=== PATIENT | male | born 1975 | race African-American/Black ===

== ENCOUNTER 2017-11-10 18:02 | Emergency (ER) | payer OTHER ==
[2017-11-10 18:16] VITALS: BMI 19.6
[2017-11-10] MEDS ORDERED: SODIUM CHLORIDE 1,000 ML IV STA (19:27)
--- NOTE | 2017-11-10 19:29 | PDOC ---
History of Present Illness - General Chief Complaint: Sore Throat Stated Complaint: VOMITING BLOOD/sorethroat/earache Time Seen by Provider: 11/10/17 18:41 - History of Present Illness Initial Comments: 11/10/17 19:23 42 yo M with h/o Etoh dependence, recent Etoh detox BIBA from [address] [place] [address] ( Inpatient) with report of blood streaked sputum. Pt. reports 3 years of chronic blood in sputum, with acute episode this AM (10-1200), following retching. Reports increased sputum production. Reports chronic left ear pain following ENT visit with instrumentation/water irrigated into L ear canal. Denies F/C, hemoptysis, hematemesis, N/V, ADAMSON, hearing loss, CP, SOB, abdominal pain, diarrhea, constipation, urinary complaints, weakness, lightheadedness, sensory changes, vertigo. PMHx: as noted above. Denies h/o PE/DVT. ROS: as noted above. Denies recent travel/immobilization, surgery, or trauma. SHx: 1-2 cigarettes per day for 15 years. 1 Pint of Vodka per day for 12 + years. Last intake this AM. Denies h/o IVDA. Past History - Past Medical History Allergies/Adverse Reactions: Allergies Allergy/AdvReac Type Severity Reaction Status Date / Time No Known Allergies Allergy Verified 11/10/17 18:16 COPD: No Other medical history: etoh abuse - Suicide/Smoking/Psychosocial Hx Smoking History: Never smoked Have you smoked in the past 12 months: No Information on smoking cessation initiated: No Hx Alcohol Use: No Drug/Substance Use Hx: No Substance Use Type: Alcohol Review of Systems - Review of Systems Comments:: 11/10/17 19:24 GENERAL/CONSTITUTIONAL: No fever or chills. No weakness. HEAD, EYES, EARS, NOSE AND THROAT: + left ear pain. No change in vision. No ear discharge. CARDIOVASCULAR: No chest pain or shortness of breath RESPIRATORY: No cough, wheezing, or hemoptysis. GASTROINTESTINAL: No nausea, vomiting, diarrhea or constipation. GENITOURINARY: No dysuria, frequency, or change in urination. MUSCULOSKELETAL: No joint or muscle swelling or pain. No neck or back pain. SKIN: No rash NEUROLOGIC: No headache, vertigo, loss of consciousness, or change in strength/ sensation. ENDOCRINE: No increased thirst. No abnormal weight change HEMATOLOGIC/LYMPHATIC: No anemia, easy bleeding, or history of blood clots. ALLERGIC/IMMUNOLOGIC: No hives or skin allergy. *Physical Exam - Vital Signs Last Vital Signs Temp Pulse Resp BP Pulse Ox 98.4 F 101 H 16 151/97 100 11/10/17 18:14 11/10/17 18:14 11/10/17 18:14 11/10/17 18:14 11/10/17 18:14 - Physical Exam Comments: 11/10/17 19:24 GENERAL: Awake, alert, and fully oriented, in no acute distress HEAD: No signs of trauma, normocephalic, atraumatic EYES: PERRLA, EOMI, sclera anicteric, conjunctiva clear ENT: L auricle with blood at superior external tympanic membrane, hearing grossly normal, nares patent, oropharynx clear without exudates. Erythematous external tymapnic membrane. Moist mucosa. + Whitish, yellow, removable pseudomembrane on tongue. NECK: Normal ROM, supple, no lymphadenopathy, JVD, or masses LUNGS: Exp rhonci. Absent rales. HEART: Regular rate and rhythm, normal S1 and S2, no murmurs, rubs or gallops, peripheral pulses normal and equal bilaterally. ABDOMEN: Soft, nontender, NBS. No guarding, no rebound. No masses. EXTREMITIES : Normal inspection, Normal range of motion, no edema. No clubbing or cyanosis. SKIN: Warm, Dry, normal turgor, no rashes or lesions noted ED Treatment Course - LABORATORY CBC & Chemistry Diagram: 11/10/17 12:43 11/10/17 12:43 Medical Decision Making - Medical Decision Making 11/10/17 19:46 42 yo M with h/o Etoh dependence, recent Etoh detox BIBA from [address] [place] [address] with report of blood streaked sputum. AFF, VSS, A&OX3. Low suspicion of esophageal perforation ( Borhaave or Chandrika Armond). Patient HDS, with absent chest pain. Left ear with blood in canal at sup. TM. Likely postramautic. Absent evidence of TM rupture. Will consider AOM. Absent discharge/granulation from Ext ear canal. Low suspicion of EOM. ED Course: T&S, CBC, CMP UA CXR 11/10/17 20:46 Nystatin swish and swallow. 11/10/17 21:14 CBC,CMP: Unremarkable 11/10/17 21:46 Patient medically cleared and stable for d/c back to [address] [place] [address]. *DC/Admit/Observation/Transfer Diagnosis at time of Disposition: Blood in sputum - Discharge Dispostion Disposition: TRANSFER ACUTE CARE/OTHER HOSP Condition at time of disposition: Stable Decision to Admit order: No - Referrals Referrals: Piter Rob MD [Primary Care Provider] - Rufus Jara MD [Staff Physician] - - Patient Instructions Printed Discharge Instructions: DI for Ear Pain-Adult Additional Instructions: Please return to the emergency department with any new or worsening symptoms or concerns. Please follow up with your primary care physician within 72 hours. Please follow up with ENT within one week. - Post Discharge Activity - Attestations Physician Attestion: 11/10/17 19:25 I attest to the information provided in this note.
[2017-11-10] MEDS ORDERED: NYSTATIN 500,000 UNITS/5 ML SUSPENSION PO ONE (19:43)
[2017-11-10 20:08] LABS: BASO % 1.3 % (0-2.0); EOS % 0.3 % (0-4.5); HEMATOCRIT 37.2 % (35.4-49); HEMOGLOBIN 12.4 GM/dL (11.7-16.9); MCH 30.3 pg (25.7-33.7); MCHC 33.2 g/dl (32.0-35.9); MEAN PLT VOLUME 8.2 fl (7.5-11.1); MONO % 8.5 % (3.8-10.2); NEUT % 73.9 % (42.8-82.8); PLATELET COUNT 146 K/MM3 (134-434); RBC 4.09 M/mm3 (4.00-5.60); RDW 15.5 % (11.9-15.9); WHITE BLOOD COUNT 3.9 K/mm3 (4.0-10.0)
--- NOTE | 2017-11-10 20:30 | PDOC ---
Attending Attestation - Resident Resident Name: Buster Mcguire - ED Attending Attestation I have performed the following: I have examined & evaluated the patient, The case was reviewed & discussed with the resident, I agree w/resident's findings & plan, Exceptions are as noted - HPI HPI: 11/10/17 21:51 Mr Baugh is a 42 yo M h/o Alcohol dependence, currently at [facility] for Detox He was referred to the ER for evaluation of blood streaked sputum which he has had for the past 3 years He has been worked up for this by ENT in the past He also has left ear pain s/p irrigation by ENT physician No fevers or chills No recent travel no lower extremity edema No chest pain or shortness of breath Pt does smoke daily and has done so for 15 years 11/10/17 21:52 - Physicial Exam PE: 11/10/17 21:54 GENERAL: Awake, alert, and fully oriented, in no acute distress ENT: L auricle with evidence of EAC trauma, hearing nml Moist mucosa. + Whitish material on the tongue LUNGS: Exp rhonci HEART: Regular rate and rhythm, normal S1 and S2 ABDOMEN: Soft, nontender, NBS. No guarding, no rebound. EXTREMITIES : Normal inspection, Normal range of motion, no edema. SKIN: Warm, Dry, normal turgor, no rashes or lesions noted - Medical Decision Making 11/10/17 21:56 42 yo presenting to the ER for evaluation of blood tinged expectorant? This has been an issue for this patient for approximately 3 years, he has been worked up for this by ENT Pt states this is unchanged Labs sent Demonstrate no significant anemia, no thrombocytopenia, nml INR Pt will be discharged back to [place] care Can follow up with ENT Can take motrin for ear pain Return to the ER for any other concerns or complaints
[2017-11-10 20:46] LABS: INR 0.94 (0.82-1.09); PROTHROMBIN TIME (PATIENT) 10.6 SEC (9.7-13.0)
[2017-11-10 20:58] LABS: ALBUMIN 4.5 g/dl (3.4-5.0); ANION GAP 13 (8-16); BILIRUBIN,TOTAL 0.7 mg/dL (0.2-1.0); BLOOD UREA NITROGEN 11 mg/dL (7-18); CHLORIDE 99 mmol/L (98-107); CO2 27 mmol/L (21-32); CREATININE 0.7 mg/dL (0.7-1.3); GLUCOSE,RANDOM 80 mg/dL (74-106); SGOT/AST 163 U/L (15-37); SGPT/ALT 111 U/L (12-78); SODIUM 139 mmol/L (136-145); TOT PROT 8.5 g/dl (6.4-8.2)
[2017-11-10 20:59] LABS: ALK PHOS 59 U/L (45-117)
[2017-11-10] MEDS ORDERED: ONDANSETRON *ODT* 4 MG TABLET SL ONE (22:47)
[2017-11-10] MEDS ORDERED: ONDANSETRON *ODT* 4 MG TABLET ONE (23:15)
[2017-11-11 00:44] VITALS: BP 162/98; PULSE 92; TEMP 9806
== END 2017-11-11 00:43 | disposition short-term general hospital (02) ==
LOC: JER 18:02
PROC: 3E0337Z Introduction of Electrolytic and Water Balance Substance into Peripheral Vein, Percutaneous Approach (ICD-10-PCS; principal; 2017-11-10)
DX: R04.2 Hemoptysis (principal); F10.20 Alcohol dependence, uncomplicated
CPT/HCPCS: 36415; 71045-TC-FY; 80053; 85025; 85610; 86850; 86900; 86901; 99282-25; J7030; Q0162

== ENCOUNTER 2017-11-11 01:14 | Inpatient (IN) | payer OTHER ==
[2017-11-11] MEDS ORDERED: LOPERAMIDE HCL 2 MG CAPSULE PO PRN (01:29)
[2017-11-11] MEDS ORDERED: MAG HYDROX/AL HYDROX/SIMETH 30 ML UNIT-DOSE CUP PO PRN (01:29)
[2017-11-11] MEDS ORDERED: MAGNESIUM HYDROX 2400MG/30ML ORAL SUSPENSION 30 ML CUP PO PRN (01:29)
[2017-11-11] MEDS ORDERED: hydrOXYzine PAMOATE 50 MG CAPSULE (FP) PO PRN (01:29)
[2017-11-11] MEDS ORDERED: chlordiazePOXIDE HCL 25 MG CAPSULE PO PRN (01:29)
[2017-11-11] MEDS ORDERED: MENTHOL/PHENOL 1 EACH UD MM PRN (01:29)
[2017-11-11] MEDS ORDERED: chlordiazePOXIDE HCL 25 MG CAPSULE PO ONE (01:29)
[2017-11-11] MEDS ORDERED: guaiFENesin/D-METHORPHAN HB 10 ML UNIT-DOSE CUPS PO PRN (01:29)
[2017-11-11] MEDS ORDERED: ACETAMINOPHEN 325 MG TABLET (FP) PO PRN (01:29)
[2017-11-11] MEDS ORDERED: NICOTINE POLACRILEX 2 MG GUM BC PRN (01:29)
[2017-11-11] MEDS ORDERED: IBUPROFEN 400 MG TABLET (FP) PO PRN (01:29)
[2017-11-11] MEDS ORDERED: P-EPHED 60MG/TRIPROLIDI 2.5MG TABLET PO PRN (01:29)
[2017-11-11] MEDS ORDERED: MAGNESIUM CITRATE 300 ML BOTTLE PO PRN (01:29)
--- NOTE | 2017-11-11 01:36 | HP ---
CIWA Score - CIWA Score Nausea/Vomitin-Int. Nausea w/Dry Heave Muscle Tremors: 7-Severe,w/o Arm Extended Anxiety: 4-Mod. Anxious/Guarded Agitation: 4-Moderately Restless Paroxysmal Sweats: 3 Orientation: 3-Disoriented Date>2 days Tacttile Disturbances: 3-Moderate Itch/Numb/Burn Auditory Disturbances: 0-None Visual Disturbances: 0-None Headache: 0-None Present CIWA-Ar Total Score: 28 Admission ROS S - HPI Chief Complaint: C/O WITHDRAWAL SX'S. SEEKING DETOX Allergies/Adverse Reactions: Allergies Allergy/AdvReac Type Severity Reaction Status Date / Time No Known Allergies Allergy Verified 11/10/17 18:16 History of Present Illness: 42 Y.O. MALE WITH 12 HX/O OF ALCOHOLISM HERE FOR DETOX. CLIENT RETURNS FROM [facility] AFTER BEING MEDICALLY CLEARED FOR A REPORTED GI BLEED. CLIENT REPORTS THIS IS HIS FIRST TIME IN DETOX. REFERRED BY FAMILY. DENIES ANY SIGNIFICANT PERIOD OF CLEAN TIME, SEIZURES, BLACKING OOUT, SI/HI. PMHX: GI BLEED, [place] L EAR, CHRONIC LEFT EAR INFECTION PSYCH: DENIES Exam Limitations: Other ([place] LEFT EAR) - Ebola screening Have you traveled outside of the country in the last 21 days: No Have you had contact with anyone from an Ebola affected area: No Have you been sick,other than usual withdrawal symptoms: No Do you have a fever: No - Review of Systems Constitutional: Chills, Loss of Appetite, Night Sweats, Changes in sleep EENT: reports: Hearing Loss (LEFT EAR), Nose Congestion, Dental Problems ( BLEEDING GUMS) Respiratory: reports: No Symptoms reported Cardiac: reports: No Symptoms Reported GI: reports: Nausea, Poor Appetite, Poor Fluid Intake, Vomiting (DRY HEAVING) : reports: No Symptoms Reported Musculoskeletal: reports: No Symptoms Reported Integumentary: reports: No Symptoms Reported Neuro: reports: No Symptoms reported Endocrine: reports: No Symptoms Reported Hematology: reports: Other (BLEEDING GUMS) Psychiatric: reports: Anxious, Depressed Other Systems: Reviewed and Negative Patient History - Patient Medical History Hx Anemia: No Hx Asthma: No Hx Chronic Obstructive Pulmonary Disease (COPD): No Hx Cancer: No Hx Cardiac Disorders: No Hx Congestive Heart Failure: No Hx Hypertension: No Hx Hypercholesterolemia: No Hx Pacemaker: No HX Cerebrovascular Accident: No Hx Seizures: No Hx Dementia: No Hx Diabetes: No Hx Gastrointestinal Disorders: Yes (GI BLEED, GERD) Hx Liver Disease: No Hx Genitourinary Disorders: No Hx Sexually Transmitted Disorders: No Hx Renal Disease (ESRD): No Hx Thyroid Disease: No Hx Human Immunodeficiency Virus (HIV): No Hx Hepatitis C: No Hx Depression: No Hx Suicide Attempt: No Hx Bipolar Disorder: No Hx Schizophrenia: No Other Medical History: DENIES - Patient Surgical History Past Surgical History: No - PPD History Previous Implant?: Yes Documented Results: Negative w/o proof Implanted On Prior [facility] Admission?: No PPD to be Administered?: Yes - Smoking Cessation Smoking history: Former smoker Have you smoked in the past 12 months: Yes Aproximately how many cigarettes per day: 3 Cigars Per Day: 0 Hx Chewing Tobacco Use: No Initiated information on smoking cessation: Yes 'Breaking Loose' booklet given: 11/11/17 - Substance & Tx. History Hx Alcohol Use: Yes Hx Substance Use: Yes Substance Use Type: Alcohol, Marijuana Hx Substance Use Treatment: No - Substances Abused VODKA Route: Oral Frequency: Daily Amount used: 1 LITER Age of first use: 30 Date of Last Use: 11/10/17 THC Route: Oral Frequency: Daily Amount used: 1 JOINT Age of first use: 20 Date of Last Use: 11/09/17 Family Disease History - Family Disease History Family History: Denies Admission Physical Exam BHS - Physical General Appearance: Yes: Appropriately Dressed, Moderate Distress, Alcohol on Breath, Thin, Tremorous, Anxious HEENTM: Yes: EOMI, Normocephalic, Normal Voice, JORDAN, Pharynx Normal, Nasal Congestion, Other (BLEEDING GUMS) Respiratory: Yes: Chest Non-Tender, Lungs Clear, Normal Breath Sounds, No Respiratory Distress, No Accessory Muscle Use Neck: Yes: No masses,lesions,Nodules, Supple, Trachea in good position Breast: Yes: Breast Exam Deferred Cardiology: Yes: Regular Rhythm, Regular Rate, S1, S2 Abdominal: Yes: Normal Bowel Sounds, Non Tender, Flat, Soft Genitourinary: Yes: Within Normal Limits Back: Yes: Normal Inspection Musculoskeletal: Yes: full range of Motion, Gait Steady Extremities: Yes: Normal Range of Motion, Non-Tender, Tremors Neurological: Yes: Alert, Disoriented (DATE) Integumentary: Yes: Dry, Warm Lymphatic: Yes: Within Normal Limits - Diagnostic (1) Alcohol dependence with uncomplicated withdrawal Current Visit: Yes Status: Acute (2) GERD (gastroesophageal reflux disease) Current Visit: Yes Status: Suspected (3) Former smoker Current Visit: Yes Status: Suspected (4) Substance induced mood disorder Current Visit: Yes Status: Suspected (5) Blood in sputum Current Visit: Yes Status: Chronic (6) Cannabis dependence, uncomplicated Current Visit: Yes Status: Acute Cleared for Admission S - Detox or Rehab [facility] Level of Care: Medically Managed Detox Regimen/Protocol: Librium Claeared for Rehab Admission: No BHS Breath Alcohol Content Breath Alcohol Content: 0.084 Vital Signs - Vital Signs Vital Signs Refused: No Temperature: 99.2 F Temperature Source: Oral Pulse Rate: 95 Respiratory Rate: 16 Blood Pressure: 138/77 BP Location: Left Arm Blood Pressure Position: Sitting - Height Height: 6 ft 1 in - Weight Weight: 63.503 kg Weight Measurement Method: Stated by Patient Body Mass Index (BMI): 18.4 - Bowel Function Bowel Movement: No Urine Drug Screen - Test Device Lot Number: [id number] Expiration Date: 08/08/19 - Control Is Test Valid: Yes - Results Drug Screen Negative: No Urine Drug Screen Results: THC-Marijuana
[2017-11-11 01:44] VITALS: BMI 18.4
[2017-11-11] MEDS ORDERED: TRIMETHOBENZAMIDE HCL 200MG/2ML INJ IM PRN (01:45)
[2017-11-11] MEDS: chlordiazePOXIDE HCL 25 MG CAPSULE PO SCH ×4 (06:53→22:26)
--- NOTE | 2017-11-11 08:18 | CONSULT ---
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 Refer to addiction counselor's summary for further information Medical History: Significant for GERD, GI bleed, chronic left ear infection. Smokes 3 cigarettes daily Psychiatric History: Denies history of previous psychiatric treatment Physical/Sexual Abuse/Trauma History: Denies history of emotional, physical or sexual abuse as well as DV relationship Additional Comment: Reports history of one misdemeanor arrest Mental Status Exam - Mental Status Exam Alert and Oriented to: Time, Place, Person Cognitive Function: Fair Patient Appearance: Well Groomed Mood: Anxious Affect: Appropriate Patient Behavior: Cooperative Speech Pattern: Clear Voice Loudness: Normal Thought Process: Intact, Goal Oriented Thought Disorder: Not Present Hallucinations: Denies Suicidal Ideation: Denies Homicidal Ideation: Denies Insight/Judgement: Poor Sleep: Poorly Appetite: Good Muscle strength/Tone: Normal Gait/Station: Normal Psychiatric Findings - Problem List ([place] 1, 2,3) (1) Substance-induced sleep disorder Current Visit: Yes Status: Acute (2) Substance-induced anxiety disorder Current Visit: Yes Status: Acute (3) Alcohol dependence with uncomplicated withdrawal Current Visit: Yes Status: Acute (4) Cannabis dependence, uncomplicated Current Visit: Yes Status: Acute (5) Nicotine dependence Current Visit: Yes Status: Chronic (6) GERD (gastroesophageal reflux disease) Current Visit: Yes Status: Chronic (7) GI bleed Current Visit: Yes Status: Acute - Initial Treatment Plan Initial Treatment Plan: 1) Start Ambien 10 mg po HS prn for insomnia. 2) Continue inpatient detoxification
[2017-11-11] MEDS: PRENATAL VITAMINS W/ FOLIC ACID TABLET (FP) PO SCH (09:02)
[2017-11-11] MEDS ORDERED: PANTOPRAZOLE 20 MG TABLET (FP) PO SCH (10:00)
[2017-11-11 10:57] LABS: HEMOGLOBIN 11.4 GM/dL (11.7-16.9); MCH 31.3 pg (25.7-33.7); MCHC 33.5 g/dl (32.0-35.9); MEAN CELL VOLUME 93.4 fl (80-96); MEAN PLT VOLUME 8.4 fl (7.5-11.1); PLATELET COUNT 108 K/MM3 (134-434); RBC 3.64 M/mm3 (4.00-5.60); RDW 15.1 % (11.9-15.9); WHITE BLOOD COUNT 3.9 K/mm3 (4.0-10.0)
[2017-11-11 11:06] LABS: CHLORIDE 98 mmol/L (98-107); POTASSIUM 3.5 mmol/L (3.5-5.1); SODIUM 140 mmol/L (136-145)
[2017-11-11 11:17] LABS: ALBUMIN 4.2 g/dl (3.4-5.0); ALK PHOS 50 U/L (45-117); ANION GAP 12 (8-16); BLOOD UREA NITROGEN 11 mg/dL (7-18); CALCIUM 8.5 mg/dL (8.5-10.1); CO2 30 mmol/L (21-32); CREATININE 0.8 mg/dL (0.7-1.3); GLUCOSE,RANDOM 62 mg/dL (74-106); SGOT/AST 153 U/L (15-37); SGPT/ALT 101 U/L (12-78); TOT PROT 7.8 g/dl (6.4-8.2)
--- NOTE | 2017-11-11 15:06 | PN ---
S CIWA - CIWA Score Nausea/Vomitin Muscle Tremors: 5 Anxiety: 3 Agitation: 2 Paroxysmal Sweats: No Perspiration Orientation: 0-Oriented Tacttile Disturbances: 2-Mild Itch/Numbness/Burn Auditory Disturbances: 0-None Visual Disturbances: 3-Moderate Sensitivity Headache: 0-None Present CIWA-Ar Total Score: 17 BHS Progress Note (SOAP) Subjective: Tremors, Diarrhea, Anxious, Interrupted Sleep. Objective: PATIENT A & O X 3, OBSERVED AMBULATING ON UNIT. NO ACUTE DISTRESS. 11/11/17 15:05 Vital Signs Temperature 100.2 F H 11/11/17 13:19 Pulse Rate 119 H 11/11/17 13:19 Respiratory Rate 18 11/11/17 13:19 Blood Pressure 140/95 11/11/17 13:19 O2 Sat by Pulse Oximetry (%) Laboratory Tests 11/11/17 11/11/17 11/11/17 07:40 07:40 07:40 WBC 3.9 L RBC 3.64 L Hgb 11.4 L Hct 34.0 L MCV 93.4 MCH 31.3 MCHC 33.5 RDW 15.1 Plt Count 108 L D MPV 8.4 Sodium 140 Potassium 3.5 Chloride 98 Carbon Dioxide 30 Anion Gap 12 BUN 11 Creatinine 0.8 Creat Clearance w eGFR > 60 Random Glucose 62 L D Calcium 8.5 Total Bilirubin 1.0 D AST 153 H ALT 101 H Alkaline Phosphatase 50 Total Protein 7.8 Albumin 4.2 RPR Titer Nonreactive LABS NOTED. Assessment: 11/11/17 15:06 WITHDRAWAL SYMPTOMS. Plan: CONTINUE DETOX. INCREASE DAILY PO FLUID INTAKE. CLONIDINE, 0.1 MG PO BID FOR ELEVATED BP AND FOR WITHDRAWAL SYMPTOMS.
[2017-11-11] MEDS ORDERED: cloNIDine HCL 0.1 MG TABLET PO ONE (15:07)
[2017-11-11] MEDS: cloNIDine HCL 0.1 MG TABLET PO SCH (22:25)
[2017-11-11] MEDS: MELATONIN 5 MG TABLETS PO PRN (22:26)
[2017-11-11] MEDS: THIAMINE HCL 100 MG TABLET (FP) PO SCH (22:26)
--- NOTE | 2017-11-11 22:41 | EKG ---
Test Reason : Blood Pressure : / mmHG Vent. Rate : 084 BPM Atrial Rate : 084 BPM P-R Int : 122 ms QRS Dur : 082 ms QT Int : 370 ms P-R-T Axes : 000 046 052 degrees QTc Int : 437 ms NORMAL SINUS RHYTHM NORMAL ECG NO PREVIOUS ECGS AVAILABLE Confirmed by BRUCE BISWAS MD ([id number]) on 11/11/2017 10:40:46 PM Referred By: Confirmed By:BRUCE BISWAS MD
[2017-11-12] MEDS: PANTOPRAZOLE 20 MG TABLET (FP) PO SCH (06:12)
[2017-11-12] MEDS: chlordiazePOXIDE HCL 25 MG CAPSULE PO SCH ×4 (06:12→22:05)
[2017-11-12] MEDS ORDERED: cloNIDine HCL 0.1 MG TABLET PO SCH (10:00)
[2017-11-12] MEDS: PRENATAL VITAMINS W/ FOLIC ACID TABLET (FP) PO SCH (10:32)
[2017-11-12] MEDS: cloNIDine HCL 0.1 MG TABLET PO SCH ×2 (10:32→22:05)
--- NOTE | 2017-11-12 15:43 | PN ---
S CIWA - CIWA Score Nausea/Vomitin Muscle Tremors: 3 Anxiety: 3 Agitation: 3 Paroxysmal Sweats: 3 Orientation: 0-Oriented Tacttile Disturbances: 0-None Auditory Disturbances: 0-None Visual Disturbances: 0-None Headache: 0-None Present CIWA-Ar Total Score: 15 S Progress Note (SOAP) Subjective: Shakes Sweats Sleep disturbance Objective: 11/12/17 15:37 A & O x3 ambulating steadily Vital Signs Temperature 97.2 F L 11/12/17 13:20 Pulse Rate 108 H 11/12/17 13:20 Respiratory Rate 18 11/12/17 13:20 Blood Pressure 100/72 11/12/17 13:20 O2 Sat by Pulse Oximetry (%) Laboratory Last Values WBC 3.9 K/mm3 (4.0-10.0) L 11/11/17 07:40 RBC 3.64 M/mm3 (4.00-5.60) L 11/11/17 07:40 Hgb 11.4 GM/dL (11.7-16.9) L 11/11/17 07:40 Hct 34.0 % (35.4-49) L 11/11/17 07:40 MCV 93.4 fl (80-96) 11/11/17 07:40 MCH 31.3 pg (25.7-33.7) 11/11/17 07:40 MCHC 33.5 g/dl (32.0-35.9) 11/11/17 07:40 RDW 15.1 % (11.9-15.9) 11/11/17 07:40 Plt Count 108 K/MM3 (134-434) L D 11/11/17 07:40 MPV 8.4 fl (7.5-11.1) 11/11/17 07:40 Sodium 140 mmol/L (136-145) 11/11/17 07:40 Potassium 3.5 mmol/L (3.5-5.1) 11/11/17 07:40 Chloride 98 mmol/L (98-107) 11/11/17 07:40 Carbon Dioxide 30 mmol/L (21-32) 11/11/17 07:40 Anion Gap 12 (8-16) 11/11/17 07:40 BUN 11 mg/dL (7-18) 11/11/17 07:40 Creatinine 0.8 mg/dL (0.7-1.3) 11/11/17 07:40 Creat Clearance w eGFR > 60 (>60) 11/11/17 07:40 Random Glucose 62 mg/dL (74-106) L D 11/11/17 07:40 Calcium 8.5 mg/dL (8.5-10.1) 11/11/17 07:40 Total Bilirubin 1.0 mg/dL (0.2-1.0) D 11/11/17 07:40 AST 153 U/L (15-37) H 11/11/17 07:40 ALT 101 U/L (12-78) H 11/11/17 07:40 Alkaline Phosphatase 50 U/L (45-117) 11/11/17 07:40 Total Protein 7.8 g/dl (6.4-8.2) 11/11/17 07:40 Albumin 4.2 g/dl (3.4-5.0) 11/11/17 07:40 RPR Titer Nonreactive (NONREACTIVE) 11/11/17 07:40 Labs noted, UA pending Assessment: 11/12/17 15:42 withdrawal sx Plan: Continue detox
[2017-11-12] MEDS: THIAMINE HCL 100 MG TABLET (FP) PO SCH (22:05)
[2017-11-13] MEDS: chlordiazePOXIDE 5 MG CAPSULE PO SCH ×4 (05:34→22:11)
[2017-11-13] MEDS: PANTOPRAZOLE 20 MG TABLET (FP) PO SCH (07:56)
[2017-11-13] MEDS: cloNIDine HCL 0.1 MG TABLET PO SCH ×2 (10:20→22:11)
[2017-11-13] MEDS: PRENATAL VITAMINS W/ FOLIC ACID TABLET (FP) PO SCH (10:20)
[2017-11-13 13:45] LABS: URINE APPEARANCE CLEAR; URINE BILIRUBIN NEGATIVE (<2.0 mg/dL); URINE BLOOD NEGATIVE (NEGATIVE); URINE COLOR LTYELLOW; URINE GLUCOSE (UA) NEGATIVE (NEGATIVE); URINE KETONE NEGATIVE (NEGATIVE); URINE LEUK ESTERASE NEGATIVE (NEGATIVE); URINE NITRITE NEGATIVE (NEGATIVE); URINE PROTEIN NEGATIVE (NEGATIVE); URINE UROBILINOGEN NEGATIVE mg/dL (0.2-1.0)
--- NOTE | 2017-11-13 15:49 | PN ---
BHS Progress Note (SOAP) Subjective: Tremors (although with significant improvement over last couple of days), Anxious. Objective: 11/13/17 15:47 Vital Signs Temperature 96 F L 11/13/17 13:39 Pulse Rate 106 H 11/13/17 13:39 Respiratory Rate 20 11/13/17 13:39 Blood Pressure 111/72 11/13/17 13:39 O2 Sat by Pulse Oximetry (%) Laboratory Tests 11/11/17 11/11/17 11/11/17 07:40 07:40 07:40 WBC 3.9 L RBC 3.64 L Hgb 11.4 L Hct 34.0 L MCV 93.4 MCH 31.3 MCHC 33.5 RDW 15.1 Plt Count 108 L D MPV 8.4 Sodium 140 Potassium 3.5 Chloride 98 Carbon Dioxide 30 Anion Gap 12 BUN 11 Creatinine 0.8 Creat Clearance w eGFR > 60 Random Glucose 62 L D Calcium 8.5 Total Bilirubin 1.0 D AST 153 H ALT 101 H Alkaline Phosphatase 50 Total Protein 7.8 Albumin 4.2 Urine Color Urine Appearance Urine pH Ur Specific [place] Urine Protein Urine Glucose (UA) Urine Ketones Urine Blood Urine Nitrite Urine Bilirubin Urine Urobilinogen Ur Leukocyte Esterase RPR Titer Nonreactive 11/13/17 10:00 WBC RBC Hgb Hct MCV MCH MCHC RDW Plt Count MPV Sodium Potassium Chloride Carbon Dioxide Anion Gap BUN Creatinine Creat Clearance w eGFR Random Glucose Calcium Total Bilirubin AST ALT Alkaline Phosphatase Total Protein Albumin Urine Color Ltyellow Urine Appearance Clear Urine pH 6.0 Ur Specific [place] 1.014 Urine Protein Negative Urine Glucose (UA) Negative Urine Ketones Negative Urine Blood Negative Urine Nitrite Negative Urine Bilirubin Negative Urine Urobilinogen Negative Ur Leukocyte Esterase Negative RPR Titer LABS NOTED. Assessment: 11/13/17 15:47 WITHDRAWAL SYMPTOMS. Plan: CONTINUE DETOX. INCREASE DAILY PO FLUID INTAKE.
[2017-11-13] MEDS: THIAMINE HCL 100 MG TABLET (FP) PO SCH (22:11)
[2017-11-13] MEDS: MELATONIN 5 MG TABLETS PO PRN (22:12)
[2017-11-14] MEDS: PANTOPRAZOLE 20 MG TABLET (FP) PO SCH (06:04)
[2017-11-14] MEDS: chlordiazePOXIDE HCL 10 MG CAPSULE PO SCH ×4 (06:04→22:08)
[2017-11-14] MEDS: cloNIDine HCL 0.1 MG TABLET PO SCH ×2 (10:48→22:08)
[2017-11-14] MEDS: PRENATAL VITAMINS W/ FOLIC ACID TABLET (FP) PO SCH (10:48)
--- NOTE | 2017-11-14 13:41 | PN ---
BHS Progress Note (SOAP) Subjective: DECREASED ANXIETY,SWEATS,FATIGUE. Objective: 11/14/17 13:40 Vital Signs 11/14/17 11/14/17 06:32 09:30 Temperature 97.2 F L 96.7 F L Pulse Rate 63 82 Respiratory 18 18 Rate Blood Pressure 140/83 111/76 Laboratory Tests 11/11/17 11/11/17 11/11/17 07:40 07:40 07:40 WBC 3.9 L RBC 3.64 L Hgb 11.4 L Hct 34.0 L MCV 93.4 MCH 31.3 MCHC 33.5 RDW 15.1 Plt Count 108 L D MPV 8.4 Sodium 140 Potassium 3.5 Chloride 98 Carbon Dioxide 30 Anion Gap 12 BUN 11 Creatinine 0.8 Creat Clearance w eGFR > 60 Random Glucose 62 L D Calcium 8.5 Total Bilirubin 1.0 D AST 153 H ALT 101 H Alkaline Phosphatase 50 Total Protein 7.8 Albumin 4.2 Urine Color Urine Appearance Urine pH Ur Specific [place] Urine Protein Urine Glucose (UA) Urine Ketones Urine Blood Urine Nitrite Urine Bilirubin Urine Urobilinogen Ur Leukocyte Esterase RPR Titer Nonreactive 11/13/17 10:00 WBC RBC Hgb Hct MCV MCH MCHC RDW Plt Count MPV Sodium Potassium Chloride Carbon Dioxide Anion Gap BUN Creatinine Creat Clearance w eGFR Random Glucose Calcium Total Bilirubin AST ALT Alkaline Phosphatase Total Protein Albumin Urine Color Ltyellow Urine Appearance Clear Urine pH 6.0 Ur Specific [place] 1.014 Urine Protein Negative Urine Glucose (UA) Negative Urine Ketones Negative Urine Blood Negative Urine Nitrite Negative Urine Bilirubin Negative Urine Urobilinogen Negative Ur Leukocyte Esterase Negative RPR Titer Assessment: 11/14/17 13:40 WITHDRAWAL SX Plan: CONTINUE DETOX
[2017-11-14] MEDS: MELATONIN 5 MG TABLETS PO PRN (22:07)
[2017-11-14] MEDS: THIAMINE HCL 100 MG TABLET (FP) PO SCH (22:08)
[2017-11-15 06:10] VITALS: BP 151/85; PULSE 67; TEMP 97.3
[2017-11-15] MEDS: PANTOPRAZOLE 20 MG TABLET (FP) PO SCH (07:59)
--- NOTE | 2017-11-15 16:37 | DS ---
[facility] Detox Discharge Summary Admission Date: 11/11/17 Discharge Date: 11/15/17 - History Present History: Alcohol Dependence, Cannabis Dependence Additional Comments: DETOX COMPLETED. ALERT O X 3. NAD. PT REPORTS PRIMARY CARE AT [facility] NEEDED. Pertinent Past History: SEE DX BELOW - Physical Exam Results Vital Signs: Vital Signs Temperature 97.3 F L 11/15/17 06:09 Pulse Rate 67 11/15/17 06:09 Respiratory Rate 16 11/15/17 06:09 Blood Pressure 151/85 11/15/17 06:09 O2 Sat by Pulse Oximetry (%) Pertinent Admission Physical Exam Findings: WITHDRAWAL SX Laboratory Tests 11/11/17 11/11/17 11/11/17 07:40 07:40 07:40 WBC 3.9 L RBC 3.64 L Hgb 11.4 L Hct 34.0 L MCV 93.4 MCH 31.3 MCHC 33.5 RDW 15.1 Plt Count 108 L D MPV 8.4 Sodium 140 Potassium 3.5 Chloride 98 Carbon Dioxide 30 Anion Gap 12 BUN 11 Creatinine 0.8 Creat Clearance w eGFR > 60 Random Glucose 62 L D Calcium 8.5 Total Bilirubin 1.0 D AST 153 H ALT 101 H Alkaline Phosphatase 50 Total Protein 7.8 Albumin 4.2 Urine Color Urine Appearance Urine pH Ur Specific [place] Urine Protein Urine Glucose (UA) Urine Ketones Urine Blood Urine Nitrite Urine Bilirubin Urine Urobilinogen Ur Leukocyte Esterase RPR Titer Nonreactive 11/13/17 10:00 WBC RBC Hgb Hct MCV MCH MCHC RDW Plt Count MPV Sodium Potassium Chloride Carbon Dioxide Anion Gap BUN Creatinine Creat Clearance w eGFR Random Glucose Calcium Total Bilirubin AST ALT Alkaline Phosphatase Total Protein Albumin Urine Color Ltyellow Urine Appearance Clear Urine pH 6.0 Ur Specific [place] 1.014 Urine Protein Negative Urine Glucose (UA) Negative Urine Ketones Negative Urine Blood Negative Urine Nitrite Negative Urine Bilirubin Negative Urine Urobilinogen Negative Ur Leukocyte Esterase Negative RPR Titer - Treatment Hospital Course: Detox Protocol Followed, Detoxed Safely, Responded well, Discharged Condition Good - Medication Discharge Medications: Ambulatory Orders NK [No Known Home Medication] 11/11/17 - Diagnosis (1) Alcohol dependence with uncomplicated withdrawal Status: Acute (2) GERD (gastroesophageal reflux disease) Status: Chronic Qualifiers: Esophagitis presence: esophagitis presence not specified Qualified Code(s) : K21.9 - Gastro-esophageal reflux disease without esophagitis (3) Nicotine dependence Status: Acute Qualifiers: Nicotine product type: cigarettes Substance use status: in withdrawal Qualified Code(s): F17.213 - Nicotine dependence, cigarettes, with withdrawal (4) Cannabis dependence, uncomplicated Status: Acute - AMA Did Patient Leave Against Medical Advice: No
== END 2017-11-15 09:12 | disposition home or self-care (01) | DRG 775 ==
LOC: YASAS 01:14 → Y3N 01:22
PROVIDERS: ADMIT Surgery; ATTEND Surgery
PROC: HZ2ZZZZ Detoxification Services for Substance Abuse Treatment (ICD-10-PCS; principal; 2017-11-11)
DX: F10.230 Alcohol dependence with withdrawal, uncomplicated (principal); F12.20 Cannabis dependence, uncomplicated; Z72.0 Tobacco use; F19.24 Other psychoactive substance dependence with psychoactive substance-induced mood disorder; F19.280 Other psychoactive substance dependence with psychoactive substance-induced anxiety disorder; F19.282 Other psychoactive substance dependence with psychoactive substance-induced sleep disorder; K21.9 Gastro-esophageal reflux disease without esophagitis; R09.3 Abnormal sputum; K92.2 Gastrointestinal hemorrhage, unspecified
CPT/HCPCS: 36415; 80053; 81003; 85027; 86593; 93005; 93010; J0735

== ENCOUNTER 2018-11-06 14:47 | Inpatient (IN) | payer OTHER ==
[2018-11-06] MEDS ORDERED: chlordiazePOXIDE HCL 25 MG CAPSULE PO ONE (15:33)
[2018-11-06] MEDS ORDERED: FOLIC ACID INJECTION - 1 MG, THIAMINE HCL 100 MG, MULTIVIT INJECTION ADULT 10 ML in SOD... IVPB ONE (15:34)
[2018-11-06] MEDS ORDERED: chlordiazePOXIDE HCL 25 MG CAPSULE ONE (15:37)
--- NOTE | 2018-11-06 16:04 | PDOC ---
History of Present Illness - General Chief Complaint: Hemoptysis Stated Complaint: COUGHING UP BLOOD Time Seen by Provider: 11/06/18 15:14 History Source: Patient Exam Limitations: No Limitations - History of Present Illness Initial Comments: 11/06/18 15:59 43M with a PMH of EtOH abuse (1 pint per day for the last 13 years) who presents to the ER from the detox facility for spitting up blood. The patient states that for the past 4-5 years, he has spit up blood while withdrawing. He denies nausea, vomiting, cough, and nose bleeds. He admits to seeing an ENT physician without any avail. He denies any hx of DVT/PE, recent travel, hx of cancer, recent surgery, hormone use. Last drink was this morning. Past History - Past Medical History Allergies/Adverse Reactions: Allergies Allergy/AdvReac Type Severity Reaction Status Date / Time No Known Allergies Allergy Verified 11/06/18 15:10 Home Medications: Ambulatory Orders Multivitamin [One-Daily Multi-Vitamin] 1 each PO DAILY 11/06/18 Anemia: No Asthma: No Cancer: No Cardiac Disorders: No CVA: No COPD: No CHF: No Dementia: No Diabetes: No GI Disorders: Yes (acid reflux) Disorders: No HTN: No Hypercholesterolemia: No Kidney Stones: No Liver Disease: No Seizures: No Thyroid Disease: No - Reproductive History Testicular Surgery: No - Suicide/Smoking/Psychosocial Hx Smoking History: Former smoker Have you smoked in the past 12 months: No Number of Cigarettes Smoked Daily: 3 Cigars Per Day: 0 Information on smoking cessation initiated: No 'Breaking Loose' booklet given: 11/11/17 Hx Alcohol Use: Yes Drug/Substance Use Hx: Yes Substance Use Type: Alcohol, Marijuana Hx Substance Use Treatment: No Review of Systems - Review of Systems Able to Perform ROS?: Yes Comments:: 11/06/18 16:04 GENERAL/CONSTITUTIONAL: + for withdrawals. No fever or chills. No weakness. HEAD, EYES, EARS, NOSE AND THROAT: + for spitting up blood. No change in vision. No sore throat. CARDIOVASCULAR: No chest pain, palpitations, or lightheadedness. RESPIRATORY: No cough, wheezing, shortness of breath, or hemoptysis. GASTROINTESTINAL: No abdominal pain, nausea, vomiting, diarrhea, or constipation. GENITOURINARY: No dysuria, frequency, hematuria, or change in urination. MUSCULOSKELETAL: No joint or muscle swelling or pain. No neck or back pain. SKIN: No rash or lesions. NEUROLOGIC: No headache, numbness, tingling, focal weakness, loss of consciousness, or change in strength/sensation. Is the patient limited Green[place]ic proficient: No *Physical Exam - Vital Signs Last Vital Signs Temp Pulse Resp BP Pulse Ox 97.8 F 97 H 18 137/88 99 11/06/18 15:13 11/06/18 15:13 11/06/18 15:13 11/06/18 15:13 11/06/18 15:13 - Physical Exam Comments: 11/06/18 16:04 GENERAL: Well developed, well nourished. Awake and alert. No acute distress. HEENT: Normocephalic, atraumatic. Hearing grossly normal. Moist mucous membranes. PERRLA, EOMI. No conjunctival pallor. Sclera are non-icteric. Oropharynx is clear. L nare shows nasal polyp. B/l TM's normal. NECK: Supple. Full ROM. No JVD. CARDIOVASCULAR: Regular rate and rhythm. No murmurs, rubs, or gallops. PULMONARY: No evidence of respiratory distress. Lungs clear to auscultation bilaterally. No wheezing, rales or rhonchi. ABDOMINAL: Soft. Non-tender. Non-distended. No rebound or guarding. MUSCULOSKELETAL: Normal range of motion at all joints. No bony deformities or tenderness. EXTREMITIES: No cyanosis. No clubbing. No edema. No calf tenderness or swelling. SKIN: Warm and dry. Normal capillary refill. No rashes. No jaundice. NEUROLOGICAL: Alert, awake, appropriate. Cranial nerves 2-12 grossly intact. Normal speech. Gait is normal without ataxia. PSYCHIATRIC: Cooperative. Good eye contact. Appropriate mood and affect. ED Treatment Course - LABORATORY CBC & Chemistry Diagram: 11/06/18 15:58 11/06/18 15:58 - Medications Given in the ED: ED Medications Discontinued Medications Generic Name Dose Route Start Last Admin Trade Name Freq PRN Reason Stop Dose Admin Chlordiazepoxide HCl 50 mg 11/06/18 15:33 11/06/18 15:45 Librium - PO 11/06/18 15:34 50 mg ONCE ONE Administration Medical Decision Making - Medical Decision Making 11/06/18 16:05 43M with a PMH of EtOH abuse who presents with complaints of spitting up blood and withdrawals. Pt noted to be tachycardic with mild tremors and tongue fasciculations on exam. Will treat withdrawals as pt also admitted to of EtOH withdrawal seizures without h/o intubations/ICU stays. After exam, pt attempted to drink mimi shady and began spitting up blood without hemoptysis or hematemesis. Very low likelihood for PE as pt has had these symptoms for years. Last withdrawal was 1 year ago. PE unremarkable except for polyp for which pt needs ENT f/u. Will draw labs and monitor closely. Giving fluids and librium. 11/06/18 17:42 EtOH level 257. Labs WNL, however AST > ALT indicated alcoholic hepatitis. Pt given 50 librium and maintaining HR 100-105. 11/06/18 18:21 Pt noted to have nausea and vomiting with elevations in HR. Vomitus noted to have blood tinged. Dr. Persaud pageomi. Case d/w Dr. Persaud who believes this is alcoholic gastritis. 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 Will microblog for admission. 11/06/18 18:32 Dr. Rodney pageomi for admission. 11/06/18 18:[address] Rodney for admission. *DC/Admit/Observation/Transfer Diagnosis at time of Disposition: Alcohol dependence with uncomplicated withdrawal, Blood in sputum - Discharge Dispostion Condition at time of disposition: Guarded Decision to Admit order: Yes - Referrals - Patient Instructions - Post Discharge Activity
--- NOTE | 2018-11-06 16:09 | PDOC ---
Documentation entered by Rachel Sen SCRIBE, acting as scribe for Jeannette Pina MD. Jeannette Pina MD: This documentation has been prepared by the cesiliaibe, Rachel Sen SCRIBE, under my direction and personally reviewed by me in its entirety. I confirm that the documentation accurately reflects all work, treatment, procedures, and medical decision making performed by me. Attending Attestation - Resident Resident Name: [email or web address] - ED Attending Attestation I have performed the following: I have examined & evaluated the patient, The case was reviewed & discussed with the resident, I agree w/resident's findings & plan, Exceptions are as noted - HPI HPI: 11/06/18 15:44 The patient is a 43-year-old male, with a past medical history of alcohol dependence, currently at [facility] for Detox, who was BIBA for hemoptysis. Patient states that his last drink was this morning and he normally drinks 1 pint of vodka/day. He reports that he has been spitting up red blood and he reports that this has been ongoing for a years now. The patient denies any fever, chills, nausea, or vomiting. Denies any chest pain or shortness of breath. Allergies: NKA Social History: Alcohol dependence. Surgical History: None reported. - Physicial Exam PE: 11/06/18 16:05 GENERAL: The patient is in no acute distress, answers questions appropriately, Alcohol on breath. ENT: Ears normal, nares patent, oropharynx clear without exudates. Moist mucous membranes. NECK: Normal range of motion, supple LUNGS: Breath sounds equal, clear to auscultation bilaterally. No wheezes, and no crackles. HEART: Tachycardiac, regular, no murmur appreciated ABDOMEN: Soft, nontender, normoactive bowel sounds. EXTREMITIES: Normal range of motion, no edema. NEUROLOGICAL: Cranial nerves II through XII grossly intact. Normal speech. No focal neurological deficits. SKIN: Warm, Dry, normal turgor, no rashes or lesions noted. 11/06/18 18:22 - Medical Decision Making 11/06/18 16:05 43 yo M presenting to the ER with a complaint of spitting up blood Pt has had these symptoms for several years Was at [facility] where he reported this complaint and was sent to the ER The patient was previously seen for the same, was referred to ENT, has not followed up EKG #1 - ST rate of 105 bpm, axis nml, intervals, nml, no st elevation or depression, t waves upright EKG #2 - ST rate of 115 bpm, axis nml, intervals, nml, no st elevation or depression, t waves upright DD: Pharyngeal pathology, Pneumonia, PE, Will do: Labs EKG CXR Consider CTA 11/06/18 18:21 Pt had an episode of coughing??? vomiting? Blood streaked sputum Call placed to GI Consult to ENT Will admit 11/06/18 18:22 Laboratory Tests 11/06/18 11/06/18 15:58 15:58 WBC 4.7 Hgb 13.1 Hct 39.9 D Plt Count 128 L BUN 16 Creatinine 0.9 AST 204 H ALT 124 H Alcohol, Quantitative 253.7 H 11/06/18 18:23 CXR - clear
[2018-11-06 16:15] LABS: BASO % 0.4 % (0-2.0); EOS % 0.2 % (0-4.5); HEMATOCRIT 39.9 % (35.4-49); HEMOGLOBIN 13.1 GM/dL (11.7-16.9); LYMPH % 10.4 % (8-40); MCH 30.3 pg (25.7-33.7); MCHC 32.9 g/dl (32.0-35.9); MEAN CELL VOLUME 92.2 fl (80-96); PLATELET COUNT 128 K/MM3 (134-434); RBC 4.33 M/mm3 (4.00-5.60); RDW 15.2 % (11.9-15.9); WHITE BLOOD COUNT 4.7 K/mm3 (4.0-10.0)
[2018-11-06 16:30] LABS: ALBUMIN 4.6 g/dl (3.4-5.0); BILIRUBIN,TOTAL 0.9 mg/dL (0.2-1); CALCIUM 8.7 mg/dL (8.5-10.1); CREATININE 0.9 mg/dL (0.55-1.3); MAGNESIUM 2.1 mg/dL (1.8-2.4); PHOSPHOROUS 3.6 mg/dL (2.5-4.9); POTASSIUM 3.9 mmol/L (3.5-5.1); TOT PROT 8.6 g/dl (6.4-8.2)
--- NOTE | 2018-11-06 17:25 | EKG ---
Test Reason : Blood Pressure : / mmHG Vent. Rate : 115 BPM Atrial Rate : 115 BPM P-R Int : 142 ms QRS Dur : 074 ms QT Int : 310 ms P-R-T Axes : 085 046 060 degrees QTc Int : 428 ms POOR DATA QUALITY, INTERPRETATION MAY BE ADVERSELY AFFECTED SINUS TACHYCARDIA OTHERWISE NORMAL ECG WHEN COMPARED WITH ECG OF 06-NOV-2018 15:16, NO SIGNIFICANT CHANGE WAS FOUND Confirmed by JAYCE HOLLAND, LARON ([id number]) on 11/06/2018 5:25:21 PM Referred By: Confirmed By:LARON EDUARDO MD
[2018-11-06] MEDS ORDERED: LORazepam 2 MG/ML SDV VIAL ONE ×2 (18:15→19:36)
[2018-11-06] MEDS ORDERED: ONDANSETRON 4 MG/2 ML VIAL ONE ×2 (18:16→19:36)
[2018-11-06] MEDS ORDERED: ONDANSETRON 4 MG/2 ML VIAL IVPUSH ONE (18:19)
[2018-11-06] MEDS ORDERED: PANTOPRAZOLE SODIUM 40 MG in SODIUM CHLORIDE 100 ML IVPB ONE (18:23)
--- NOTE | 2018-11-06 19:28 | HP ---
Admitting History and Physical - Primary Care Physician PCP: Karla Rodney - Admission History of Present Illness: 43M with a PMH of EtOH abuse (1 pint per day for the last 13 years) who presents to the ER from the detox facility for spitting up blood. The patient states that for the past 4-5 years, he has spit up blood while withdrawing. He denies nausea, vomiting, cough, and nose bleeds. He admits to seeing an ENT physician without any avail. He denies any hx of DVT/PE, recent travel, hx of cancer, recent surgery, hormone use. Last drink was this morning. - Smoking History Smoking history: Former smoker Have you smoked in the past 12 months: No Aproximately how many cigarettes per day: 3 - Alcohol/Substance Use Hx Alcohol Use: Yes Home Medications - Allergies Allergies/Adverse Reactions: Allergies Allergy/AdvReac Type Severity Reaction Status Date / Time No Known Allergies Allergy Verified 11/06/18 15:10 - Home Medications Home Medications: Ambulatory Orders Multivitamin [One-Daily Multi-Vitamin] 1 each PO DAILY 11/06/18 Review of Systems - Review of Systems Gastrointestinal: reports: Other (spitting blood) Physical Examination Vital Signs: Vital Signs Temperature 97.8 F 11/06/18 15:13 Pulse Rate 97 H 11/06/18 15:13 Respiratory Rate 18 11/06/18 15:13 Blood Pressure 137/88 11/06/18 15:13 O2 Sat by Pulse Oximetry (%) 99 11/06/18 15:13 Constitutional: Yes: No Distress HENT: Yes: Atraumatic Neck: Yes: Supple Cardiovascular: Yes: Regular Rate and Rhythm Respiratory: Yes: CTA Bilaterally Gastrointestinal: Yes: Normal Bowel Sounds Extremities: Yes: WNL Neurological: Yes: Alert, Oriented Labs: CBC, BMP 11/06/18 15:58 11/06/18 15:58 Problem List - Problems (1) Alcohol dependence with uncomplicated withdrawal Assessment/Plan: prn ativan Code(s): F10.230 - ALCOHOL DEPENDENCE WITH WITHDRAWAL, UNCOMPLICATED (2) Blood in sputum Code(s): R04.2 - HEMOPTYSIS (3) Cannabis dependence, uncomplicated Code(s): F12.20 - CANNABIS DEPENDENCE, UNCOMPLICATED (4) Nicotine dependence Code(s): F17.200 - NICOTINE DEPENDENCE, UNSPECIFIED, UNCOMPLICATED Qualifiers: (5) GERD (gastroesophageal reflux disease) Code(s): K21.9 - GASTRO-ESOPHAGEAL REFLUX DISEASE WITHOUT ESOPHAGITIS Qualifiers: (6) Former smoker Code(s): Z87.891 - PERSONAL HISTORY OF NICOTINE DEPENDENCE Assessment/Plan Laboratory Tests 11/06/18 11/06/18 15:58 15:58 WBC 4.7 RBC 4.33 Hgb 13.1 Hct 39.9 D MCV 92.2 MCH 30.3 MCHC 32.9 RDW 15.2 Plt Count 128 L MPV 8.0 Absolute Neuts (auto) 3.8 Neutrophils % 81.0 Lymphocytes % 10.4 D Monocytes % 8.0 Eosinophils % 0.2 Basophils % 0.4 Nucleated RBC % 0 Sodium 137 Potassium 3.9 Chloride 100 Carbon Dioxide 23 Anion Gap 15 BUN 16 Creatinine 0.9 Est GFR (CKD-EPI)AfAm 120.81 Est GFR (CKD-EPI)NonAf 104.24 Random Glucose 106 Calcium 8.7 Phosphorus 3.6 Magnesium 2.1 Total Bilirubin 0.9 AST 204 H ALT 124 H Alkaline Phosphatase 57 Total Protein 8.6 H Albumin 4.6 Alcohol, Quantitative 253.7 H Active Medications Generic Name Dose Route Start Last Admin Trade Name Freq PRN Reason Stop Dose Admin Folic Acid 1 mg/ Thiamine HCl 1,000 mls @ 125 mls/hr 11/06/18 15:34 11/06/18 16:43 100 mg/ Multivitamins/Minerals IVPB 11/06/18 23:33 125 mls/hr 10 ml/ Sodium Chloride ONCE ONE Administration Active Medications Generic Name Dose Route Start Last Admin Trade Name Freq PRN Reason Stop Dose Admin Pantoprazole Sodium 40 mg 11/07/18 10:00 11/07/18 10:36 Protonix Iv IVPUSH 40 mg DAILY VALERIA Administration Sodium Chloride 2 spray 11/07/18 12:12 [place] Nasal [place] - NS Q8H PRN NASAL CONGESTION
[2018-11-06] MEDS ORDERED: PANTOPRAZOLE SODIUM 40 MG/100 ML BAG IVPB ONE (19:36)
[2018-11-07 06:00] LABS: BASO % 0.6 % (0-2.0); EOS % 0.5 % (0-4.5); HEMATOCRIT 35.1 % (35.4-49); HEMOGLOBIN 11.9 GM/dL (11.7-16.9); LYMPH % 18.6 % (8-40); MCH 31.1 pg (25.7-33.7); MCHC 33.8 g/dl (32.0-35.9); MEAN CELL VOLUME 91.9 fl (80-96); MEAN PLT VOLUME 7.9 fl (7.5-11.1); MONO % 9.1 % (3.8-10.2); NEUT % 71.2 % (42.8-82.8); PLATELET COUNT 103 K/MM3 (134-434); RBC 3.82 M/mm3 (4.00-5.60); RDW 14.7 % (11.9-15.9); WHITE BLOOD COUNT 4.3 K/mm3 (4.0-10.0)
[2018-11-07 06:23] LABS: BILIRUBIN,TOTAL 1.6 mg/dL (0.2-1); CALCIUM 8.7 mg/dL (8.5-10.1); POTASSIUM 3.7 mmol/L (3.5-5.1); TOT PROT 7.7 g/dl (6.4-8.2)
[2018-11-07 10:22] LABS: INR 1.06 (0.83-1.09); PROTHROMBIN TIME (PATIENT) 12.5 SEC (9.7-13.0)
[2018-11-07 10:25] LABS: ACTIVATED PTT 24.8 SECONDS (25.2-36.5)
[2018-11-07] MEDS ORDERED: PANTOPRAZOLE SODIUM 40 MG/100 ML BAG IVPB ONE (10:36)
[2018-11-07] MEDS: PANTOPRAZOLE SODIUM 40 MG VIAL IVPUSH SCH (10:36)
--- NOTE | 2018-11-07 12:08 | CON.PULM ---
Consult Consult Specialty:: PULMONARY Referred by:: Dr Mcginnis Reason for Consultation:: hemoptysis - History of Present Illness Chief Complaint: hemoptysis History of Present Illness: 43yo male with h/o alcohol dependence who was sent from detox for hemoptysis. Denies any chest pain or palpitations. No fevers, chills or sweats. Hemoptysis described as "spitting up" dark brown saliva mostly and has been occurring on/ off for the past 5 years. He also does report frequent epistaxis, has been seen by ENT in the past. He also has had endoscopies and CT chests which were reportedly normal. He is a nonsmoker. - History Source History Provided By: Patient, Medical Record Limitations to Obtaining History: No Limitations - Alcohol/Substance Use Hx Alcohol Use: Yes - Smoking History Smoking history: Former smoker Have you smoked in the past 12 months: No Aproximately how many cigarettes per day: 3 Home Medications - Allergies Allergies/Adverse Reactions: Allergies Allergy/AdvReac Type Severity Reaction Status Date / Time No Known Allergies Allergy Verified 11/06/18 15:10 - Home Medications Home Medications: Ambulatory Orders Multivitamin [One-Daily Multi-Vitamin] 1 each PO DAILY 11/06/18 Review of Systems - Review of Systems Constitutional: denies: Chills, Fever, Weakness Eyes: denies: Recent Change in Vision HENT: reports: Epistaxis. denies: Nasal Congestion, Throat Pain Neck: denies: Stiffness, Tenderness Cardiovascular: denies: Chest Pain, Shortness of Breath Respiratory: reports: Cough, Hemoptysis. denies: SOB, Wheezing Gastrointestinal: denies: Abdominal Pain, Nausea, Vomiting Genitourinary: denies: Dysuria, Hematuria Neurological: denies: Dizziness, Headache Endocrine: denies: Unexplained Weight Loss Physical Exam Vital Sings: Vital Signs Temperature 98.2 F 11/07/18 11:20 Pulse Rate 85 11/07/18 12:05 Respiratory Rate 20 11/07/18 12:05 Blood Pressure 137/82 11/07/18 12:05 O2 Sat by Pulse Oximetry (%) 98 11/07/18 12:05 Constitutional: Yes: Calm Eyes: Yes: EOM Intact HENT: Yes: Atraumatic, Normocephalic Neck: Yes: Supple, Trachea Midline Cardiovascular: Yes: Regular Rate and Rhythm Respiratory: Yes: Regular, Diminished (decreased breath sounds at the bases) ...Clubbing: No Gastrointestinal: Yes: Normal Bowel Sounds, Soft. No: Tenderness Edema: No Neurological: Yes: Alert, Oriented Labs: CBC, BMP 11/07/18 05:45 11/07/18 05:45 Imaging - Results Chest X-ray: Report Reviewed, Image Reviewed (no infiltrates) Problem List - Problems (1) Hemoptysis Code(s): R04.2 - HEMOPTYSIS (2) Alcohol dependence with uncomplicated withdrawal Code(s): F10.230 - ALCOHOL DEPENDENCE WITH WITHDRAWAL, UNCOMPLICATED Assessment/Plan Hemoptysis Alcohol Dependence - monitor/quantify hemoptysis - hemoptysis likely due to recurrent epistaxis - will order CT chest but low suspicion of pulmonary etiology - will start nasal saline sprays - monitor for withdrawal - DVT prophylaxis Thank you for this consult Walt Herron MD
[2018-11-07 12:12] LABS: HEMATOCRIT 34.6 % (35.4-49); HEMOGLOBIN 11.4 GM/dL (11.7-16.9); MCH 30.7 pg (25.7-33.7); MCHC 33.1 g/dl (32.0-35.9); MEAN CELL VOLUME 92.9 fl (80-96); MEAN PLT VOLUME 8.6 fl (7.5-11.1); PLATELET COUNT 96 K/MM3 (134-434); RBC 3.72 M/mm3 (4.00-5.60); RDW 14.8 % (11.9-15.9); WHITE BLOOD COUNT 4.2 K/mm3 (4.0-10.0)
[2018-11-07] MEDS ORDERED: SODIUM CHLORIDE NASAL SPRAY 44 ML BOTTLE NS PRN (12:12)
--- NOTE | 2018-11-07 13:10 | CON.GI ---
Consult Consult Specialty:: GI Referred by:: Dr. Rodney Reason for Consultation:: Spitting up blood - History of Present Illness Chief Complaint: I was in detox and I spit up blood History of Present Illness: 43M who was transferred from [facility] rehab because he spit up blood. He was picked up for alcohol detox in the [place] He states that this has been occurring over the last few years. He feel it "on the left side of his mouth and then spits up blood". He denies hemoptysis or hematemesis. He denies oropharyngeal pain. He is an ex tobacco smoker and currently smokes marijuana. He states that he had dark bowel movements prior to coming to [facility] and a diminished appetite. He states having had an EGD several years ago that was unremarkable. There is no family history of colorectal cancer or other GI malignancy. There is no family history of liver disease. 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 No family history of colorectal cancer or other GI malignancy Review of Systems - Review of Systems Constitutional: denies: Chills Cardiovascular: denies: Chest Pain Respiratory: denies: Cough, Hemoptysis, SOB Gastrointestinal: reports: Melena. denies: Abdominal Pain, Bloating, Constipation, Nausea, Rectal Bleeding, Vomiting, Vomiting Blood Physical Exam-GI Vital Signs: Vital Signs Temperature 98.2 F 11/07/18 11:20 Pulse Rate 85 11/07/18 12:05 Respiratory Rate 20 11/07/18 12:05 Blood Pressure 137/82 11/07/18 12:05 O2 Sat by Pulse Oximetry (%) 98 11/07/18 12:05 Constitutional: Yes: Calm Eyes: No: Sclera Icterus Cardiovascular: Yes: Regular Rate and Rhythm. No: Murmur Respiratory: Yes: CTA Bilaterally Gastrointestinal Inspection: No: Distention, Scars ...Auscultate: Yes: Normoactive Bowel Sounds ...Palpate: Yes: Soft. No: Hepatomegaly, Splenomegaly, Tenderness ...Percussion: No: Tympanitic ...Rectal Exam: Yes: Other (No external lesion, no masses, brown stool, guaiac negative) Edema: No (No LE edema) Neurological: Yes: Alert Labs: CBC, BMP 11/07/18 11:58 11/07/18 05:45 INR, PTT INR 1.06 (0.83-1.09) 11/07/18 09:31 Hepatic Panel Total Bilirubin 1.6 mg/dL (0.2-1) H 11/07/18 05:45 AST 152 U/L (15-37) H 11/07/18 05:45 ALT 105 U/L (13-61) H 11/07/18 05:45 Alkaline Phosphatase 51 U/L (45-117) 11/07/18 05:45 Albumin 4.0 g/dl (3.4-5.0) 11/07/18 05:45 Problem List - Problems (1) Blood in sputum Assessment/Plan: Chronic by history and unclear if from GI or Pulmonary source. No actual hemoptysis or hematemesis. Limitred evaluation of the oropharynx unremarkable. I did discuss upper endoscopy with Mr. Baugh to exclude potential bleeding source such as PUD, gastritis, esophageal varices given his alcohol abuse history. Explained that esophageal varices can lead to life threatening bleeding. I explained that id varices that were concerneing for bleeding were found, banding could be performed. Discussed potential risks of the procedure like but not limited to bleeding, perforation requiring durgery to repair, infection, sedation medication effects all of which could be potentially life threatening. He did not consent to the procedure and instead stated that he would like to think about this option. Advise: ENT evaluation Pulmonary evaluation Clear liquid diet AM Labs Protonix 40mg BID ETOH withdrawal precautions Monitor H/H and for signs of active GI bleeding. If overt bleeding Code(s): R04.2 - HEMOPTYSIS
--- NOTE | 2018-11-07 17:51 | PN ---
Progress Note, Physician History of Present Illness: tolerated clear liquid diet no hemoptysis - Current Medication List Current Medications: Active Medications Pantoprazole Sodium (Protonix Iv) 40 mg IVPUSH DAILY VALERIA Last Admin: 11/07/18 10:36 Dose: 40 mg Sodium Chloride ([place] Nasal [place] -) 2 spray NS Q8H PRN PRN Reason: NASAL CONGESTION - Objective Vital Signs: Vital Signs Temperature 98.8 F 11/07/18 14:00 Pulse Rate 90 11/07/18 14:00 Respiratory Rate 20 11/07/18 14:00 Blood Pressure 137/82 11/07/18 12:05 O2 Sat by Pulse Oximetry (%) 98 11/07/18 12:05 Constitutional: Yes: No Distress HENT: Yes: Atraumatic Neck: Yes: Supple Cardiovascular: Yes: Regular Rate and Rhythm Respiratory: Yes: CTA Bilaterally Extremities: Yes: WNL Edema: No Peripheral Pulses WNL: Yes Neurological: Yes: Alert, Oriented Labs: CBC, BMP 11/07/18 11:58 11/07/18 05:45 INR, PTT INR 1.06 (0.83-1.09) 11/07/18 09:31 Problem List - Problems (1) Alcohol dependence with uncomplicated withdrawal Assessment/Plan: prn ativan Code(s): F10.230 - ALCOHOL DEPENDENCE WITH WITHDRAWAL, UNCOMPLICATED (2) Blood in sputum Code(s): R04.2 - HEMOPTYSIS (3) Cannabis dependence, uncomplicated Code(s): F12.20 - CANNABIS DEPENDENCE, UNCOMPLICATED (4) Nicotine dependence Code(s): F17.200 - NICOTINE DEPENDENCE, UNSPECIFIED, UNCOMPLICATED Qualifiers: (5) GERD (gastroesophageal reflux disease) Code(s): K21.9 - GASTRO-ESOPHAGEAL REFLUX DISEASE WITHOUT ESOPHAGITIS Qualifiers: (6) Former smoker Code(s): Z87.891 - PERSONAL HISTORY OF NICOTINE DEPENDENCE Assessment/Plan ent eval other consults reviewed
[2018-11-07] MEDS ORDERED: chlordiazePOXIDE HCL 10 MG CAPSULE PO PRN (19:05)
--- NOTE | 2018-11-07 19:05 | PN ---
[facility] CIWA - CIWA Score Nausea/Vomitin-No Nausea/No Vomiting Muscle Tremors: 4-Moderate,w/Arms Extend Anxiety: 4-Mod. Anxious/Guarded Agitation: 0-Normal Activity Paroxysmal Sweats: 4-Forehead w/Sweat Beads Orientation: 0-Oriented Tacttile Disturbances: 0-None Auditory Disturbances: 0-None Visual Disturbances: 0-None Headache: 0-None Present CIWA-Ar Total Score: 12 S Progress Note (SOAP) Subjective: pt referred for etoh use , reports 1 pint/ day x 12 years , longest sobriety 7-8 , latest use a few days ago, current symptoms as above , reports withdrawal seizure several months ago , appears to be minimizing use and severity of symptoms . Active Medications Pantoprazole Sodium (Protonix Iv) 40 mg IVPUSH DAILY VALERIA Last Admin: 11/07/18 10:36 Dose: 40 mg Sodium Chloride ([place] Nasal [place] -) 2 spray NS Q8H PRN PRN Reason: NASAL CONGESTION Objective: wnwd , resting in bed , anxious , + UE tremors Resp : no distress noted . CBC, BMP 11/07/18 11:58 11/07/18 05:45 Abnormal Lab Results 11/07/18 11/07/18 11/07/18 05:45 05:45 09:31 RBC 3.82 L Hgb Hct 35.1 L Plt Count 103 L PTT (Actin FS) 24.8 L Random Glucose 108 H Total Bilirubin 1.6 H AST 152 H ALT 105 H 11/07/18 11:58 RBC 3.72 L Hgb 11.4 L Hct 34.6 L Plt Count 96 L PTT (Actin FS) Random Glucose Total Bilirubin AST ALT Vital Signs - 24 hr 11/06/18 11/07/18 11/07/18 21:45 08:52 11:20 Temperature 99.1 F 98.6 F 98.2 F Pulse Rate Pulse Rate [ 138 H 122 H 83 Apical] Respiratory 19 16 16 Rate Blood Pressure Blood Pressure 145/121 H 133/94 123/76 [Left Arm] O2 Sat by Pulse 99 99 100 Oximetry (%) 11/07/18 11/07/18 11/07/18 12:05 14:00 17:00 Temperature 98.8 F 98.9 F Pulse Rate 90 86 Pulse Rate [ 85 Apical] Respiratory 20 20 20 Rate Blood Pressure 130/87 Blood Pressure 137/82 [Left Arm] O2 Sat by Pulse 98 Oximetry (%) Assessment: alcohol dependence w/ withdrawal Plan: Librium taper
[2018-11-07] MEDS: chlordiazePOXIDE HCL 25 MG CAPSULE PO SCH (21:37)
[2018-11-08] MEDS: chlordiazePOXIDE HCL 25 MG CAPSULE PO SCH ×2 (06:15→13:06)
[2018-11-08 08:08] LABS: BASO % 0.7 % (0-2.0); EOS % 1.6 % (0-4.5); HEMATOCRIT 33.7 % (35.4-49); HEMOGLOBIN 11.3 GM/dL (11.7-16.9); LYMPH % 25.1 % (8-40); MCH 31.1 pg (25.7-33.7); MCHC 33.7 g/dl (32.0-35.9); MEAN CELL VOLUME 92.4 fl (80-96); MONO % 7.8 % (3.8-10.2); NEUT % 64.8 % (42.8-82.8); PLATELET COUNT 97 K/MM3 (134-434); RBC 3.64 M/mm3 (4.00-5.60); RDW 14.3 % (11.9-15.9); WHITE BLOOD COUNT 3.8 K/mm3 (4.0-10.0)
[2018-11-08 08:47] LABS: ALBUMIN 3.6 g/dl (3.4-5.0); BILIRUBIN,TOTAL 1.7 mg/dL (0.2-1); CALCIUM 8.8 mg/dL (8.5-10.1); CREATININE 0.9 mg/dL (0.55-1.3); POTASSIUM 3.3 mmol/L (3.5-5.1); TOT PROT 6.9 g/dl (6.4-8.2)
[2018-11-08] MEDS: PANTOPRAZOLE SODIUM 40 MG VIAL IVPUSH SCH (10:08)
--- NOTE | 2018-11-08 12:20 | PN ---
Progress Note, Physician History of Present Illness: PULMONARY ALERT,NO DISTRESS,-SOB,TRACE HEMOPTYSIS(DARK RED). CHEST CT -INFILTRATES,-MASSES - Current Medication List Current Medications: Active Medications Chlordiazepoxide HCl (Librium -) 10 mg PO Q12H PRN PRN Reason: Signs/symptoms of Withdrawal Stop: 11/10/18 20:59 Chlordiazepoxide HCl (Librium -) 10 mg PO Q8H PRN PRN Reason: Signs/symptoms of Withdrawal Stop: 11/08/18 19:04 Chlordiazepoxide HCl (Librium -) 25 mg PO Q8H [facility] Stop: 11/08/18 13:01 Last Admin: 11/08/18 06:15 Dose: 25 mg Chlordiazepoxide HCl (Librium -) 15 mg PO Q8H [facility] Stop: 11/09/18 13:01 Chlordiazepoxide HCl (Librium -) 10 mg PO Q8H [facility] Stop: 11/10/18 21:01 Pantoprazole Sodium (Protonix Iv) 40 mg IVPUSH DAILY [facility] Last Admin: 11/07/18 10:36 Dose: 40 mg Sodium Chloride ([place] Nasal [place] -) 2 spray NS Q8H PRN PRN Reason: NASAL CONGESTION - Objective Vital Signs: Vital Signs Temperature 98.6 F 11/08/18 06:00 Pulse Rate 85 11/08/18 06:00 Respiratory Rate 20 11/08/18 06:00 Blood Pressure 111/66 11/08/18 06:00 O2 Sat by Pulse Oximetry (%) 100 11/07/18 20:02 Constitutional: Yes: Well Nourished, Calm Eyes: Yes: WNL HENT: Yes: WNL Neck: Yes: WNL Cardiovascular: Yes: WNL Respiratory: Yes: WNL Gastrointestinal: Yes: Normal Bowel Sounds, Soft Extremities: Yes: WNL Edema: No Labs: CBC, BMP 11/08/18 05:59 11/08/18 05:59 INR, PTT INR 1.06 (0.83-1.09) 11/07/18 09:31 - ....Imaging Cat Scan: Report Reviewed, Image Reviewed (NORMAL EXAM) Assessment/Plan Problem List - Problems (1) Hemoptysis Code(s): R04.2 - HEMOPTYSIS (2) Alcohol dependence with uncomplicated withdrawal Code(s): F10.230 - ALCOHOL DEPENDENCE WITH WITHDRAWAL, UNCOMPLICATED Assessment/Plan Hemoptysis improving Alcohol Dependence - monitor/quantify hemoptysis - hemoptysis likely due to recurrent epistaxis - nasal saline sprays - monitor for withdrawal - DVT prophylaxis DR MELÉNDEZ
--- NOTE | 2018-11-08 17:45 | DS ---
Physical Examination Vital Signs: Vital Signs Temperature 98.1 F 11/08/18 14:00 Pulse Rate 92 H 11/08/18 14:00 Respiratory Rate 15 11/08/18 09:00 Blood Pressure 113/73 11/08/18 14:00 O2 Sat by Pulse Oximetry (%) 100 11/08/18 09:00 Constitutional: Yes: No Distress HENT: Yes: Atraumatic Neck: Yes: Supple Cardiovascular: Yes: Regular Rate and Rhythm Respiratory: Yes: CTA Bilaterally Gastrointestinal: Yes: Normal Bowel Sounds Extremities: Yes: WNL Neurological: Yes: Alert, Oriented Labs: CBC, BMP 11/08/18 05:59 11/08/18 05:59 Discharge Summary Reason For Visit: ALCOHOL DEPENDENCE WITH UNCOMPLICATED WITHDRAWAL Current Active Problems Alcohol dependence with uncomplicated withdrawal (Acute) Hemoptysis (Acute) Blood in sputum (Chronic) Condition: Guarded - Instructions Diet, Activity, Other Instructions: librium taper as per dr lai - Home Medications Comprehensive Discharge Medication List: Ambulatory Orders Multivitamin [One-Daily Multi-Vitamin] 1 each PO DAILY 11/06/18 me to [facility] for detox d/e dr lai pt need fu with ent as out patient
--- NOTE | 2018-11-08 17:59 | PN.GI ---
GI Progress Note Subjective: No acute events No abdominal pain No spitting up of blood Per nurse refused EGD earlier today - Objective Vital Signs: Vital Signs Temperature 98.1 F 11/08/18 14:00 Pulse Rate 92 H 11/08/18 14:00 Respiratory Rate 15 11/08/18 09:00 Blood Pressure 113/73 11/08/18 14:00 O2 Sat by Pulse Oximetry (%) 100 11/08/18 09:00 Constitutional: Calm Eyes: No: Sclera Icterus Cardiovascular: Yes: Regular Rate and Rhythm Respiratory: Yes: CTA Bilaterally Gastrointestinal Inspection: No: Distention ...Auscultate: Yes: Normoactive Bowel Sounds ...Palpate: No: Hepatomegaly, Soft, Splenomegaly, Tenderness Edema: No (No LE edema) Neurological: Yes: Alert Labs: CBC, BMP 11/08/18 05:59 11/08/18 05:59 INR, PTT INR 1.06 (0.83-1.09) 11/07/18 09:31 Problem List - Problems (1) Blood in sputum Assessment/Plan: No further episodes. Now agreeable to EGD on Sunday Protonix 40mg once daily Advance diet NPO after midnight sunday Code(s): R04.2 - HEMOPTYSIS
--- NOTE | 2018-11-08 18:16 | PN ---
Progress Note, Physician History of Present Illness: patient now decided to stay to do egd on sunday - Current Medication List Current Medications: Active Medications Chlordiazepoxide HCl (Librium -) 10 mg PO Q12H PRN PRN Reason: Signs/symptoms of Withdrawal Stop: 11/10/18 20:59 Chlordiazepoxide HCl (Librium -) 10 mg PO Q8H PRN PRN Reason: Signs/symptoms of Withdrawal Stop: 11/08/18 19:04 Chlordiazepoxide HCl (Librium -) 15 mg PO Q8H [facility] Stop: 11/09/18 13:01 Chlordiazepoxide HCl (Librium -) 10 mg PO Q8H [facility] Stop: 11/10/18 21:01 Pantoprazole Sodium (Protonix Iv) 40 mg IVPUSH DAILY [facility] Last Admin: 11/08/18 10:08 Dose: 40 mg Sodium Chloride ([place] Nasal [place] -) 2 spray NS Q8H PRN PRN Reason: NASAL CONGESTION Last Admin: 11/08/18 16:12 Dose: 2 spray - Objective Vital Signs: Vital Signs Temperature 98.1 F 11/08/18 14:00 Pulse Rate 92 H 11/08/18 14:00 Respiratory Rate 15 11/08/18 09:00 Blood Pressure 113/73 11/08/18 14:00 O2 Sat by Pulse Oximetry (%) 100 11/08/18 09:00 Constitutional: Yes: No Distress HENT: Yes: Atraumatic Neck: Yes: Supple Cardiovascular: Yes: Regular Rate and Rhythm Respiratory: Yes: CTA Bilaterally Gastrointestinal: Yes: Normal Bowel Sounds Extremities: Yes: WNL Edema: No Peripheral Pulses WNL: Yes Neurological: Yes: Alert, Oriented Labs: CBC, BMP 11/08/18 05:59 11/08/18 05:59 INR, PTT INR 1.06 (0.83-1.09) 11/07/18 09:31 Problem List - Problems (1) Alcohol dependence with uncomplicated withdrawal Assessment/Plan: on librium protocol Code(s): F10.230 - ALCOHOL DEPENDENCE WITH WITHDRAWAL, UNCOMPLICATED (2) Blood in sputum Code(s): R04.2 - HEMOPTYSIS (3) Cannabis dependence, uncomplicated Code(s): F12.20 - CANNABIS DEPENDENCE, UNCOMPLICATED (4) Nicotine dependence Code(s): F17.200 - NICOTINE DEPENDENCE, UNSPECIFIED, UNCOMPLICATED Qualifiers: (5) GERD (gastroesophageal reflux disease) Code(s): K21.9 - GASTRO-ESOPHAGEAL REFLUX DISEASE WITHOUT ESOPHAGITIS Qualifiers: (6) Former smoker Code(s): Z87.891 - PERSONAL HISTORY OF NICOTINE DEPENDENCE Assessment/Plan FOR EGD ON SUNDAY
[2018-11-08] MEDS: chlordiazePOXIDE 5 MG CAPSULE PO SCH (21:00)
[2018-11-09] MEDS: chlordiazePOXIDE 5 MG CAPSULE PO SCH ×2 (05:36→13:15)
--- NOTE | 2018-11-09 09:04 | PN ---
Progress Note, Physician History of Present Illness: PULMONARY ALERT,NO DISTRESS,FOR EGD ON SUNDAY. HEMOPTYSIS RESOLVED - Current Medication List Current Medications: Active Medications Chlordiazepoxide HCl (Librium -) 10 mg PO Q12H PRN PRN Reason: Signs/symptoms of Withdrawal Stop: 11/10/18 20:59 Chlordiazepoxide HCl (Librium -) 15 mg PO Q8H [facility] Stop: 11/09/18 13:01 Last Admin: 11/09/18 05:36 Dose: 15 mg Chlordiazepoxide HCl (Librium -) 10 mg PO Q8H [facility] Stop: 11/10/18 21:01 Pantoprazole Sodium (Protonix Iv) 40 mg IVPUSH DAILY [facility] Last Admin: 11/08/18 10:08 Dose: 40 mg Sodium Chloride ([place] Nasal [place] -) 2 spray NS Q8H PRN PRN Reason: NASAL CONGESTION Last Admin: 11/08/18 16:12 Dose: 2 spray - Objective Vital Signs: Vital Signs Temperature 99.2 F 11/09/18 06:37 Pulse Rate 89 11/09/18 06:37 Respiratory Rate 20 11/09/18 06:37 Blood Pressure 114/65 11/09/18 06:37 O2 Sat by Pulse Oximetry (%) 100 11/08/18 21:00 Constitutional: Yes: Well Nourished, Calm Eyes: Yes: WNL HENT: Yes: WNL Neck: Yes: WNL Cardiovascular: Yes: Regular Rate and Rhythm, S1, S2 Respiratory: Yes: CTA Bilaterally Gastrointestinal: Yes: Normal Bowel Sounds, Soft Extremities: Yes: WNL Edema: No Labs: Assessment/Plan Problem List - Problems (1) Hemoptysis Code(s): R04.2 - HEMOPTYSIS (2) Alcohol dependence with uncomplicated withdrawal Code(s): F10.230 - ALCOHOL DEPENDENCE WITH WITHDRAWAL, UNCOMPLICATED Assessment/Plan Hemoptysis resolved Alcohol Dependence - egd on sunday - hemoptysis likely due to recurrent epistaxis - nasal saline sprays - monitor for withdrawal - DVT prophylaxis DR MELÉNDEZ
[2018-11-09] MEDS: PANTOPRAZOLE SODIUM 40 MG VIAL IVPUSH SCH (09:23)
--- NOTE | 2018-11-09 12:02 | PN ---
Progress Note, Physician - Current Medication List Current Medications: Active Medications Chlordiazepoxide HCl (Librium -) 10 mg PO Q12H PRN PRN Reason: Signs/symptoms of Withdrawal Stop: 11/10/18 20:59 Chlordiazepoxide HCl (Librium -) 15 mg PO Q8H [facility] Stop: 11/09/18 13:01 Last Admin: 11/09/18 05:36 Dose: 15 mg Chlordiazepoxide HCl (Librium -) 10 mg PO Q8H [facility] Stop: 11/10/18 21:01 Pantoprazole Sodium (Protonix Iv) 40 mg IVPUSH DAILY [facility] Last Admin: 11/09/18 09:23 Dose: 40 mg Sodium Chloride ([place] Nasal [place] -) 2 spray NS Q8H PRN PRN Reason: NASAL CONGESTION Last Admin: 11/08/18 16:12 Dose: 2 spray - Objective Vital Signs: Vital Signs Temperature 99.2 F 11/09/18 06:37 Pulse Rate 89 11/09/18 06:37 Respiratory Rate 20 11/09/18 09:00 Blood Pressure 114/65 11/09/18 06:37 O2 Sat by Pulse Oximetry (%) 100 11/09/18 10:26 HENT: Yes: Atraumatic Neck: Yes: Supple Cardiovascular: Yes: Regular Rate and Rhythm Respiratory: Yes: CTA Bilaterally Gastrointestinal: Yes: Normal Bowel Sounds Extremities: Yes: WNL Edema: No Peripheral Pulses WNL: Yes Neurological: Yes: Alert, Oriented Labs: CBC, BMP 11/08/18 05:59 11/08/18 05:59 INR, PTT INR 1.06 (0.83-1.09) 11/07/18 09:31 Problem List - Problems (1) Alcohol dependence with uncomplicated withdrawal Assessment/Plan: on librium protocol Code(s): F10.230 - ALCOHOL DEPENDENCE WITH WITHDRAWAL, UNCOMPLICATED (2) Blood in sputum Code(s): R04.2 - HEMOPTYSIS (3) Cannabis dependence, uncomplicated Code(s): F12.20 - CANNABIS DEPENDENCE, UNCOMPLICATED (4) Nicotine dependence Code(s): F17.200 - NICOTINE DEPENDENCE, UNSPECIFIED, UNCOMPLICATED Qualifiers: (5) GERD (gastroesophageal reflux disease) Code(s): K21.9 - GASTRO-ESOPHAGEAL REFLUX DISEASE WITHOUT ESOPHAGITIS Qualifiers: (6) Former smoker Code(s): Z87.891 - PERSONAL HISTORY OF NICOTINE DEPENDENCE Assessment/Plan FOR EGD ON SUNDAY
[2018-11-09 12:12] LABS: HBSAG SCREEN Negative (Negative); HEP A AB, IGM Negative (Negative); HEP B CORE AB, TOT Negative (Negative)
[2018-11-09] MEDS ORDERED: chlordiazePOXIDE HCL 10 MG CAPSULE PO PRN (21:00)
[2018-11-09] MEDS ORDERED: chlordiazePOXIDE 5 MG CAPSULE ONE (21:06)
[2018-11-09] MEDS: POTASSIUM CHLORIDE TABS 20 MEQ TABLET.ER (FP) PO SCH (21:11)
[2018-11-09] MEDS: chlordiazePOXIDE HCL 10 MG CAPSULE PO SCH (21:12)
[2018-11-10] MEDS ORDERED: chlordiazePOXIDE 5 MG CAPSULE ONE ×3 (05:28→20:29)
[2018-11-10] MEDS: chlordiazePOXIDE HCL 10 MG CAPSULE PO SCH ×3 (05:38→20:30)
[2018-11-10] MEDS: POTASSIUM CHLORIDE TABS 20 MEQ TABLET.ER (FP) PO SCH (09:54)
[2018-11-10] MEDS: PANTOPRAZOLE SODIUM 40 MG VIAL IVPUSH SCH (09:54)
--- NOTE | 2018-11-10 11:04 | PN ---
Progress Note, Physician History of Present Illness: PULMONARY ALERT,NO DISTRESS,-SOB,-HEMOPTYSIS - Current Medication List Current Medications: Active Medications Chlordiazepoxide HCl (Librium -) 10 mg PO Q12H PRN PRN Reason: Signs/symptoms of Withdrawal Stop: 11/10/18 20:59 Chlordiazepoxide HCl (Librium -) 10 mg PO Q8H [facility] Stop: 11/10/18 21:01 Last Admin: 11/10/18 05:38 Dose: 10 mg Pantoprazole Sodium (Protonix Iv) 40 mg IVPUSH DAILY [facility] Last Admin: 11/10/18 09:54 Dose: 40 mg Sodium Chloride ([place] Nasal [place] -) 2 spray NS Q8H PRN PRN Reason: NASAL CONGESTION Last Admin: 11/08/18 16:12 Dose: 2 spray - Objective Vital Signs: Vital Signs Temperature 98.9 F 11/10/18 05:23 Pulse Rate 67 11/10/18 05:23 Respiratory Rate 20 11/10/18 05:23 Blood Pressure 115/68 11/10/18 05:23 O2 Sat by Pulse Oximetry (%) 100 11/09/18 22:00 Constitutional: Yes: Well Nourished, Calm Eyes: Yes: WNL HENT: Yes: WNL Neck: Yes: WNL Cardiovascular: Yes: Regular Rate and Rhythm Respiratory: Yes: CTA Bilaterally Gastrointestinal: Yes: Normal Bowel Sounds, Soft Labs: CBC, BMP Assessment/Plan Problem List - Problems (1) Hemoptysis Code(s): R04.2 - HEMOPTYSIS (2) Alcohol dependence with uncomplicated withdrawal Code(s): F10.230 - ALCOHOL DEPENDENCE WITH WITHDRAWAL, UNCOMPLICATED Assessment/Plan Hemoptysis resolved Alcohol Dependence - egd on sunday - hemoptysis likely due to recurrent epistaxis resolved - nasal saline sprays - monitor for withdrawal - DVT prophylaxis DR MELÉNDEZ
--- NOTE | 2018-11-10 15:38 | EKG ---
Test Reason : Blood Pressure : / mmHG Vent. Rate : 105 BPM Atrial Rate : 105 BPM P-R Int : 136 ms QRS Dur : 082 ms QT Int : 328 ms P-R-T Axes : 070 050 056 degrees QTc Int : 433 ms SINUS TACHYCARDIA POSSIBLE LEFT ATRIAL ENLARGEMENT BORDERLINE ECG WHEN COMPARED WITH ECG OF 11-NOV-2017 01:53, NO SIGNIFICANT CHANGE WAS FOUND Confirmed by KELLY THORNE MD ([id number]) on 11/10/2018 3:38:32 PM Referred By: Confirmed By:KELLY THORNE MD
--- NOTE | 2018-11-10 22:45 | PN ---
Progress Note, Physician - Current Medication List Current Medications: Active Medications Pantoprazole Sodium (Protonix Iv) 40 mg IVPUSH DAILY [facility] Last Admin: 11/10/18 09:54 Dose: 40 mg Sodium Chloride ([place] Nasal [place] -) 2 spray NS Q8H PRN PRN Reason: NASAL CONGESTION Last Admin: 11/08/18 16:12 Dose: 2 spray - Objective Vital Signs: Vital Signs Temperature 98.2 F 11/10/18 17:00 Pulse Rate 73 11/10/18 17:00 Respiratory Rate 20 11/10/18 20:42 Blood Pressure 126/74 11/10/18 17:00 O2 Sat by Pulse Oximetry (%) 100 11/10/18 20:42 Labs: CBC, BMP 11/08/18 05:59 11/08/18 05:59 INR, PTT INR 1.06 (0.83-1.09) 11/07/18 09:31
[2018-11-11] MEDS: PANTOPRAZOLE SODIUM 40 MG VIAL IVPUSH SCH (09:35)
--- NOTE | 2018-11-11 09:57 | PN ---
Progress Note, Physician History of Present Illness: PULMONARY ALERT,NO DISTRESS,-HEMOPTYSIS,FOR EGD TODAY - Current Medication List Current Medications: Active Medications Pantoprazole Sodium (Protonix Iv) 40 mg IVPUSH DAILY [facility] Last Admin: 11/11/18 09:35 Dose: 40 mg Sodium Chloride ([place] Nasal [place] -) 2 spray NS Q8H PRN PRN Reason: NASAL CONGESTION Last Admin: 11/08/18 16:12 Dose: 2 spray - Objective Vital Signs: Vital Signs Temperature 97.8 F 11/11/18 09:00 Pulse Rate 80 11/11/18 09:00 Respiratory Rate 18 11/11/18 09:00 Blood Pressure 108/66 11/11/18 09:00 O2 Sat by Pulse Oximetry (%) 100 11/10/18 20:42 Constitutional: Yes: Well Nourished, Calm Eyes: Yes: WNL HENT: Yes: WNL Neck: Yes: WNL Cardiovascular: Yes: Regular Rate and Rhythm, S1, S2 Respiratory: Yes: CTA Bilaterally Gastrointestinal: Yes: Normal Bowel Sounds, Soft Extremities: Yes: WNL Edema: No Labs: CBC, BMP Assessment/Plan Problem List - Problems (1) Hemoptysis Code(s): R04.2 - HEMOPTYSIS (2) Alcohol dependence with uncomplicated withdrawal Code(s): F10.230 - ALCOHOL DEPENDENCE WITH WITHDRAWAL, UNCOMPLICATED Assessment/Plan Hemoptysis resolved Alcohol Dependence - egd today - hemoptysis likely due to recurrent epistaxis resolved - nasal saline sprays DR MELÉNDEZ
--- NOTE | 2018-11-11 12:24 | PN ---
Progress Note (short form) - Note Progress Note: EGD performed today revealing mild antral and duodenal bulb erythema, no ulcers seen. No esophageal varices. Gastric biopsies taken. See scanned endoscopy report for complete details. Recommendations: -Continue monitor Hb and for further evaluation -Follow up pathology results r/o H pylori -PPI daily -Follow up with pulmonary -Consider ENT evaluation if further epistaxis -
[2018-11-11 12:36] VITALS: TEMP 97.5
[2018-11-11 12:55] VITALS: BP 151/83; PULSE 67
--- NOTE | 2018-11-11 13:58 | DS ---
Physical Examination Vital Signs: Vital Signs Temperature 97.5 F L 11/11/18 13:00 Pulse Rate 67 11/11/18 13:00 Respiratory Rate 14 11/11/18 13:00 Blood Pressure 151/83 11/11/18 13:00 O2 Sat by Pulse Oximetry (%) 100 11/11/18 13:00 Constitutional: Yes: No Distress Neck: Yes: Supple Cardiovascular: Yes: Regular Rate and Rhythm Respiratory: Yes: CTA Bilaterally Gastrointestinal: Yes: Normal Bowel Sounds Extremities: Yes: WNL Edema: No Peripheral Pulses WNL: Yes Neurological: Yes: Alert, Oriented Labs: CBC, BMP 11/08/18 05:59 11/08/18 05:59 Discharge Summary Reason For Visit: ALCOHOL DEPENDENCE WITH UNCOMPLICATED WITHDRAWAL Current Active Problems Alcohol dependence with uncomplicated withdrawal (Acute) Hemoptysis (Acute) Blood in sputum (Chronic) Condition: Guarded - Instructions Diet, Activity, Other Instructions: librium taper as per dr lai Referrals: Rufus Jara MD [Staff Physician] - Disposition: [facility] - Home Medications Comprehensive Discharge Medication List: Ambulatory Orders Multivitamin [One-Daily Multi-Vitamin] 1 each PO DAILY 11/06/18 Sodium Chloride Nasal [place] [[place] Nasal [place] -] 2 spray NS Q8H PRN spray 11/08/18 Pantoprazole Sodium [Protonix] 40 mg PO DAILY #30 tablet. 11/11/18 [facility]
--- NOTE | 2018-11-12 13:06 | PATH ---
Surgical Pathology Report Patient Name: ALBA FELIX Med. Rec. #: [id number] /Age/Gender: 1975 (Age: 43) / M Account: [id number] Location: 4 W TELEMETRY U Taken: 11/11/2018 Received: 11/11/2018 Reported: 11/12/2018 Physicians: MD Karla Hunter M.D. Specimen(s) Received ANTRUM Clinical History Rule out varices, hematemesis Postoperative diagnosis: Gastritis Final Diagnosis STOMACH, ANTRUM, BIOPSY: GASTRIC ANTRAL MUCOSA WITH MILD CHRONIC GASTRITIS. IMMUNOHISTOCHEMICAL STAIN FOR H. PYLORI IS NEGATIVE. Electronically Signed Susanne Perez M.D. Gross Description Received in formalin, labeled "biopsy antrum" are 2 rand, irregular portions of soft tissue measuring 0.3 and 0.5 cm. in greatest dimension. The specimens are submitted in toto in one cassette. /11/11/201811/11/2018
== END 2018-11-11 14:51 | disposition other institution (70) | DRG 775 ==
LOC: JER 14:47 → JERBED 18:32 → J4W 11-07 12:05
PROVIDERS: ADMIT Internal Medicine; ATTEND Internal Medicine
PROC: 0DD68ZX Extraction of Stomach, Via Natural or Artificial Opening Endoscopic, Diagnostic (ICD-10-PCS; principal; 2018-11-11 11:00)
DX: F10.230 Alcohol dependence with withdrawal, uncomplicated (principal); R04.2 Hemoptysis; Y90.8 Blood alcohol level of 240 mg/100 ml or more; F12.10 Cannabis abuse, uncomplicated; K21.9 Gastro-esophageal reflux disease without esophagitis; Z87.891 Personal history of nicotine dependence; J33.9 Nasal polyp, unspecified
CPT/HCPCS: 36415; 71045-TC-FY; 71250-TC; 76700-TC; 80053; 80307; 82550; 82553; 83735; 84100; 84484; 85025; 85027; 85610; 85730; 86704; 86706; 86708; 86803; 87340; 88305-TC; 93005; 93010; 99283-25; J7030

== ENCOUNTER 2018-11-11 15:39 | Inpatient (IN) | payer OTHER | END 2018-11-15 11:50 | disposition home or self-care (01) | LOC: YASAS 15:39 → Y5N 22:50 ==